=== PATIENT | female | born 1995 | race American Indian/Alaskan Native ===

== ENCOUNTER 2018-11-27 18:37 | Emergency (ER) | payer OTHER ==
[2018-11-27 18:45] VITALS: BP 128/85
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
[2018-11-27] MEDS ORDERED: DELTASONE PO ONE (19:56)
[2018-11-27] MEDS ORDERED: FLEXERIL PO ONE (19:56)
[2018-11-27] MEDS ORDERED: NORCO 5/325 PO ONE (19:56)
== END 2018-11-27 20:16 | disposition home or self-care (01) ==
LOC: ED 18:37
DX: S16.1XXA Strain of muscle, fascia and tendon at neck level, initial encounter (principal); F12.10 Cannabis abuse, uncomplicated; V89.2XXA Person injured in unspecified motor-vehicle accident, traffic, initial encounter; Y93.89 Activity, other specified; Y92.488 Other paved roadways as the place of occurrence of the external cause; Y99.8 Other external cause status
CPT/HCPCS: 72040; 99283; J7512